=== PATIENT | female | born 1995 | race Caucasian/White ===

== ENCOUNTER 2020-01-05 08:19 | Emergency (ER) | payer BC, SELFPAY ==
[2020-01-05 08:48] VITALS: BP 114/71; PULSE 86; RESP 18; TEMP 36.6; O2SAT 99
--- NOTE | 2020-01-05 09:29 | ED.EAR ---
HPI - Ear Problem General Chief complaint: Ear Stated complaint: EAr/Nose/throat Time Seen by Provider: 01/05/20 09:30 Source: patient History of Present Illness HPI Narrative: Patient presents with right ear pain for the past 5 days. Patient denies any hearing loss denies any drainage from the ear. Patient denies any dizziness no nausea. Patient denies any recent URI symptoms. Patient has not taken thing [id number] for her symptoms. Related Data Allergies Allergy/AdvReac Type Severity Reaction Status Date / Time Penicillins Allergy Intermediate Hives Verified 01/05/20 09:26 Review of Systems Review of Systems: Narrative: CONSTITUTIONAL: Denies fever, chills, or sweats. EYES: Denies visual changes, redness, or discharge. ENT: Denies rhinorrhea, congestion, sore throat, reports otalgia. CARDIOVASCULAR: Denies chest pain, palpitations, or edema. RESPIRATORY: Denies cough or dyspnea. GASTROINTESTINAL: Denies abdominal pain, nausea, vomiting, or diarrhea. GENITOURINARY: Denies dysuria or hematuria. SKIN: Denies rash or itching. MUSCULOSKELETAL: Denies back pain, joint pain, or myalgia. NEUROLOGIC: Denies headache, numbness, or weakness. PSYCHIATRIC: Denies anxiety or depression. All systems reviewed & are unremarkable except as noted in HPI and below PMFSH Comments At time of signature, agree with nursing past medical, surgical, social and family history. There is no relevant family history pertinent to the presenting complaint Exam Narrative: Exam Narrative: GENERAL: Well-appearing, well-nourished, and in no acute distress. HEAD: Normocephalic, atraumatic. EYES: PERRLA and EOMI. ENT: Nares clear, no rhinorrhea or epistaxis. Mucous membranes moist. Right TM bulging with moderate erythremia to canal left TM mild dullness NECK: Supple. CHEST: Clear to auscultation. No respiratory distress. HEART: Regular rate and rhythm. No murmur heard. Normal peripheral pulses. ABDOMEN: Soft, nontender, nondistended, normal active bowel sounds. EXTREMITIES: Normal range of motion. No edema. SKIN: Warm, dry, no rash. NEURO: No focal deficits. Alert and oriented x3. D Hanis Coma Scale Eye Opening: Spontaneous 4 D Hanis Coma Scale Motor: Obeys Commands 6 Melva Coma Scale Verbal: Oriented 5 D Hanis Coma Scale Total 15 Course Vital Signs Vital signs: Vital Signs Temperature 36.6 C 01/05/20 08:48 Pulse Rate 86 01/05/20 08:48 Respiratory Rate 18 01/05/20 08:48 Blood Pressure 114/71 01/05/20 08:48 Pulse Oximetry 99 01/05/20 08:48 Temperature 36.6 C 01/05/20 08:48 Pulse Rate 86 01/05/20 08:48 Respiratory Rate 18 01/05/20 08:48 Blood Pressure 114/71 01/05/20 08:48 Pulse Oximetry 99 01/05/20 08:48 Medical Decision Making Vital Signs Vital Signs: Vital Signs Temperature 36.6 C 01/05/20 08:48 Pulse Rate 86 01/05/20 08:48 Respiratory Rate 18 01/05/20 08:48 Blood Pressure 114/71 01/05/20 08:48 Pulse Oximetry 99 01/05/20 08:48 Temperature 36.6 C 01/05/20 08:48 Pulse Rate 86 01/05/20 08:48 Respiratory Rate 18 01/05/20 08:48 Blood Pressure 114/71 01/05/20 08:48 Pulse Oximetry 99 01/05/20 08:48 Critical Care Time Critical Care Time Critical Care Time: No Discharge Plan Discharge Clinical Impression: Otitis media Qualifiers: Otitis media type: suppurative Chronicity: acute Laterality: right Recurrence: not specified as recurrent Spontaneous tympanic membrane rupture: without spontaneous rupture Qualified Code(s): H66.001 - Acute suppurative otitis media without spontaneous rupture of ear drum, right ear Patient Disposition: Home, Self-Care Condition: Stable Instructions: Antibiotic Form Additional Instructions: Tylenol and/or ibuprofen as needed for fever and discomfort Flonase nasal spray as prescribed for nasal congestion Follow-up with primary care provider in the next 2 to 3 days as needed for reevaluation If any new or worsening
== END 2020-01-05 09:42 | disposition home or self-care (01) ==
PROVIDERS: Emergency Provider Nurse Practitioner Family
DX: H66.001 Acute suppurative otitis media without spontaneous rupture of ear drum, right ear (principal)
CPT/HCPCS: 99213; G0463